=== PATIENT | male | born 1945 ===

== ENCOUNTER → 2017-09-29 | Outpatient (CLI) | payer OTHER, BC ==
[~2017-09-29] MED LIST: ASPI81TA28 PO; ATOR-22 PO; BICA50TA40 PO; CALC600T37 PO; CHOL1CAP67 PO; COEN150C PO; LEUP30IN3 IM; LEVO100T PO; LIPITOR 20 MG; MULT-506 PO; PSYL48.59 PO; VALS320T2 PO
[2017-09-29 10:08] VITALS: BP 161/90; PULSE 67; TEMP 36.7; O2SAT 94
--- NOTE | 2017-09-29 13:20 | Radiation Oncology Follow-Up ---
Radiation Oncology Follow-Up Date of Visit Sep 29, 2017. Reason For Visit One-month follow-up and cancer survivorship care plan Radiation Completion Date finished 08-31-2017 Diagnosis (1) Prostate cancer Status: Acute Onset Date: 10/21/2009 Location: both lobes of the prostate Histology Subtype: adenocarcinoma Stage: ll Permanent Comment: Elevated PSA status post prostate biopsy Status post status post robotic-assisted radical prostatectomy and lymph node dissection 10/21/2009 Adenocarcinoma the prostate with [place] 4+3 and tertiary 5 Negative margins Capsular invasion pT2c pN0 M0 Rising PSA now at 14.1 05/29/2017 Initiation of hormonal suppression 06/16/2017 Lupron and Casodex managed through [facility] Status post completion of salvage radiation therapy 08/31/2017. He received 7020 cGy Last Edited By: Lauren Romo on Sep 15, 2017 18:10 History of Present Illness Mr. Ballesteros has a family history of prostate cancer. The patient's father was diagnosed with prostate cancer in his 60s and underwent prostate seed implant. He passed in his 90s unrelated to his prostate cancer. The patient has therefore been followed with screening prostate-specific antigens. On September 222007 the patient's prostate-specific antigen increased to 4.4. The patient was seen by Dr. Wander Augustin at the [facility] in [facility]. Patient underwent ultrasound-guided biopsies confirming a diagnosis of prostate cancer. The patient went on to have a robotic radical prostatectomy on 10/21/2009. This showed a prostatic adenocarcinoma with Miguel Angel grade 4+3 and a tertiary pattern 5. There were multiple bilateral foci with the left greater than the right measuring up to 1.5 cm. There was evidence of capsular invasion however there was no capsular penetration or extraprostatic extension identified. The surgical margins were therefore free of tumor. There was no tumor seen in the bilateral seminal vesicles. There was high-grade PIN identified. 7 lymph nodes were taken and no tumor was seen in all 7 nodes. Patient therefore had a stage TIIc Miguel Angel 4+3 with tertiary pattern 5 adenocarcinoma prostate. Accession number [id number]. The patient's prostate-specific antigen became undetectable. Shortly after in 2010 he moved to [facility]. He continued to have prostate- specific antigens drawn annually. On October 31, 2016 his prostate-specific antigen however was elevated at 2.18. A prostate-specific antigen free and total was subsequently performed. The prostate-specific antigen free was less than 0.1 and the prostate-specific antigen total was less than 0.1. Because of this the prostate-specific antigen was to be repeated in 6 months. This was repeated on 05/01/2017 and had jumped to 9.4. Patient went on to have staging bone scan on 05/06/2017. This showed no evidence of metastatic disease. On patient underwent a CT scan of the abdomen and pelvis with IV contrast. This showed no evidence of bony lesions and no evidence of enlarged pelvic or abdominal lymph nodes. Dr. edmond had discussed possible referral to [facility]. It is unclear whether the patient was seen there. However he was seen by Dr. Oral Palacios for evaluation on 05/29/2017. Dr. Palacios ordered a repeat prostate-specific antigen which was performed on May 29. Unfortunately this showed continued rise in prostate-specific antigen to 14.1. He discussed the treatment options as defined by NCCN. With the continued rise in prostate-specific antigen there is a question of possible dissemination. However the role of local therapy is still reasonable to be discussed. For this reason we were asked to see the patient. He underwent salvage radiation therapy. This was completed 08/31/2017. He received 7020 cGy. Interim History Over the past month he has noted increased urinary incontinence. He gave an AUA score of 2.5. Following his prostatectomy he had incontinence that steadily resolved. This is now recurred. The amount is minimal. He uses one pad per day and one pad in the evening. He has restarted exercises that he had done following his prostatectomy. He is scheduled for a Lupron injection 2016. He has minimal side effects to the Lupron. Overall he tolerated his treatment well. Allergies Coded Allergies: No Known Allergies (Unverified , 06/07/17) Home Medications Scheduled Aspirin (Aspirin Ec), 81 MG PO DAILY Atorvastatin (Lipitor), 1 TAB PO DAILY Bicalutamide (Casodex), 1 TAB PO DAILY Calcium (Calcium), 1 TAB PO BID Cholecalciferol (Vitamin D-3), 2,000 UNITS PO DAILY Coenzyme Q10 (Ubidecarenone) (Co Q-10), 150 MG PO DAILY Leuprolide Acetate (Lupron Depot), 30 MG IM DIRECTED Levothyroxine Sodium (Synthroid), 1 TAB PO DAILY Multivitamin (Multivitamin), 1 TAB PO DAILY Valsartan/Hctz (Diovan Hct 320MG/25MG), 1 TAB PO DAILY Review of Systems Gastrointestinal: Symptoms: WNL Oral: Symptoms: No Problems Respiratory: Symptoms: WNL Urinary: Symptoms: Incontinence, Nocturia Comments: stress incontence wears a pad changes twice , nocturia times 2 Skin: Symptoms: No Problems Physical Exam Vital Signs Date Time Temp Pulse Resp B/P (MAP) Pulse Ox O2 Delivery O2 Flow Rate FiO2 09/29/17 10:08 36.7 67 18 161/90 94 Fatigue: None General Appearance: no apparent distress Eyes: normal inspection, EOMI ENT: normal ENT inspection, hearing grossly normal Respiratory/Chest: lungs clear, no respiratory distress, no accessory muscle use Cardiovascular: regular rate, rhythm, no gallop, no murmur Abdomen: non tender, soft, no organomegaly Extremities: no pedal edema Neurologic/Psychiatric: no motor/sensory deficits, alert, normal mood/affect Skin: warm/dry Lymphatic: no adenopathy Pain Management Patient Reports Pain: No Side: Bilateral Patient Preferred Pain Scale: 0 - 10 Initial Pain Intensity: 0.0 Pain Management Plan He denies pain therefore requires no pain management. Laboratory Laboratory Results: not applicable Pathology Pathology Results: not applicable Imaging Imaging Studies: not applicable Assessment & Plan Plan: He is going to have a PSA October [address] Palacios's office. He'll be having his Lupron injection that day also. Today we discussed the mild incontinence. He is going to continue on with the exercises he had previously done after his prostatectomy. We discussed that he could be referred to [facility] should these prove to be unsuccessful. I also discussed a short course of anti-inflammatory medication see if this would also help with the incontinence. He is going to continue the exercises for now to see if that helps. We discussed side effects of the hormonal suppression. He is aware of the possibility of osteoporosis. He is taking calcium and vitamin D as instructed. We also discussed in the future obtaining a DEXA scan. Today we completed a cancer survivorship care plan. A copy of the document was given to the patient. We asked him to return to our office in 6 months. He may call if he has the questions or concerns in the interim. Total Time In Follow-Up I spent 20 minutes speaking to the patient and performing examination. I spent 20 minutes reviewing information, preparing the survivorship document, and completing this note. Copy To Lucius Edmond M.D.; Oral Palacios MD
== END | disposition home or self-care (01) ==
LOC: C.ONC 10:00
PROVIDERS: ATTEND Physician Assistant Medical
DX: Z08 Encounter for follow-up examination after completed treatment for malignant neoplasm (principal); Z92.3 Personal history of irradiation; Z85.46 Personal history of malignant neoplasm of prostate